=== PATIENT | female | born 1940 | race Caucasian/White ===

== ENCOUNTER → 2021-11-27 | Outpatient (CLI) | payer MEDICARE ==
[~2021-11-27] MED LIST: ASPI81CH; Cinnamon500 MG; Coq-10100 MG; DAILY MULTIPLE1 EACH; GINGER ROOT1 GM; Janumet 50-1,01 EACH; LISHYD1012; LOPRESSOR HCT PO; LOSHYD; METF500; OSCAL; PRAV20; VITAMIN B122500 MCG
[2021-11-30 12:53] LABS: Stool Occult Bld Immuno 1 Positive (NEGATIVE)
== END | disposition home or self-care (01) ==
LOC: LAB 15:00 → LAB SHORT 15:00
PROVIDERS: Internal Medicine
DX: D53.9 Nutritional anemia, unspecified (principal)
CPT/HCPCS: 82274

== ENCOUNTER 2022-03-19 17:37 | Inpatient (IN) | payer MEDICARE ==
[~2022-03-19] VITALS: Ht 162.6 cm; Wt 63.5 kg
[2022-03-19 18:30] LABS: BASOPHILS ABSOLUTE AUTO 0.03 K/mm3 (0.00-0.23); BASOPHILS PERCENT AUTO 0 % (0-2); EOSINOPHILS PERCENT AUTO 0 % (0-6); Hematocrit 31.9 % (33.0-51.0); Hemoglobin 10.2 g/dL (11.5-16.0); IMMATURE GRAN ABSOLUTE AUTO 0.09 K/mm3 (0.00-0.10); IMMATURE GRAN PERCENT AUTO 1 % (0-1); LYMPHOCYTES ABSOLUTE AUTO 0.76 K/mm3 (0.84-5.20); LYMPHOCYTES PERCENT AUTO 5 % (21-46); MONOCYTES ABSOLUTE AUTO 0.94 K/mm3 (0.16-1.47); MONOCYTES PERCENT AUTO 7 % (4-13); Mean Corpuscular HGB 27.5 pg (26.0-34.0); Mean Corpuscular Volume 86 fL (80-100); Mean Platelet Volume 10.3 fL (9.1-12.4); NEUTROPHILS ABSOLUTE AUTO 12.66 K/mm3 (1.96-9.15); NEUTROPHILS PERCENT AUTO 88 % (41-73); Platelet Count 389 K/mm3 (150-400); RDW Standard Deviation 46.8 fL (35.1-46.3); Red Blood Cell Count 3.71 M/mm3 (3.80-5.20); White Blood Cell Count 14.48 K/mm3 (4.00-11.30)
[2022-03-19 18:41] LABS: Source, Urine Straight Cath
[2022-03-19 18:48] LABS: Appearance, Urine Cloudy (Clear); Bilirubin, Urine Neg (Neg); Blood, Urine 3+ (Neg); Color, Urine Yellow (P-Yellow); Glucose Qualitative, Urine 4+ (Neg); Ketones, Urine 2+ (Neg); Leukocyte Esterase, Urine 3+ (Neg); Nitrite, Urine Pos (Neg); Protein, Urine 3+ (Neg); Urobilinogen, Urine NORM (Normal)
[2022-03-19 18:54] LABS: Base Excess Venous 1.5 mmol/L; Bicarbonate Venous 25.4 mmol/L (24.0-30.0); PCO2 Venous 42.5 mmHg (38-42)
[2022-03-19 18:54] LABS: White Blood Cells, Urine TNTC /hpf (0-5)
[2022-03-19 18:55] LABS: Beta-hydroxybutyrate 18.9 mg/dL (0.2-2.8)
[2022-03-19 18:56] LABS: Bacteria Many /hpf; Red Blood Cells, Urine 0-2 /hpf (0-2); Squamous Epithelial Cells Not Seen /hpf (Few)
[2022-03-19 19:13] LABS: Albumin, Blood 2.6 g/dL (3.4-5.0); Albumin/Globulin Ratio 0.5 (0.8-1.8); Bilirubin, Total 1.3 mg/dL (0.1-1.0); Bun/Creatinine Ratio 21.6 (12.0-20.0); Calcium, Blood 8.5 mg/dL (8.5-10.1); Creatinine, Blood 1.11 mg/dL (0.40-1.00); Globulin, Blood 5.6 g/dL (2.2-4.0); Potassium, Blood 3.2 mmol/L (3.5-5.5); Total Protein, Blood 8.2 g/dL (6.4-8.2)
[2022-03-19] MEDS ORDERED: FUROSEMIDE20 MG PO (21:35)
[2022-03-19] MEDS ORDERED: JANUMET 50-1,01 EACH PO (21:36)
[2022-03-19] MEDS ORDERED: PRAVASTATIN SOD20 MG PO (21:36)
[2022-03-19] MEDS ORDERED: POTA10T PO (21:36)
[2022-03-19] MEDS ORDERED: BASAGLAR K100 UNIT/3 SC (21:36)
[2022-03-19] MEDS ORDERED: XARELTO20 M1 PO (21:36)
[2022-03-19] MEDS ORDERED: METO50ER PO (21:36)
--- NOTE | 2022-03-20 03:31 | NUR ---
SHIFT SUMMARY NOC ADMIT FROM ED WITH SEPSIS/UTI. PT A/O X 4 ON BEDREST DUE TO GENERALIZED WEAKNESS FROM INFECTION. PT HAS LACTIC ACID THAT IS AT 2.3 DOWN FROM 2.5. PT HAS DM2 BUT DOES NOT MONITOR BLOOD GLUCOSE OR TAKE INSULIN AT HOME. PT STATES SHE WAS TIRED OR DOING IT. HER CBG IN ED WAS >400 AND 354 BEFORE GLARGINE ADMININSTRATION. PT IS ON TELE AFIB @ 100 BPM. PT IS CURRENTLY ON SEPSIS NS FLUIDS @ 125 MLS/HR. PT MG LEVEL WAS 1.0 AND WAS GIVEN IVPB MG REPLACEMENT. AWAITING AM LABS FOR REEVALUATION. PT HAS STAGE 1 PU ON COCCYX WITH MEPILEX IN PLACE. PT HAS YEAST INFECTION UNDER BOTH BREASTS AND UNDER PANNUS WITH NYSTATIN POWDER APPLIED. PT IS CURRENTLY RESTING IN BED WITH BED IN LOWEST POSITION, AND CALL LIGHT WITHIN REACH.
[2022-03-20 04:51] LABS: Hematocrit 28.7 % (33.0-51.0); Hemoglobin 9.3 g/dL (11.5-16.0); Mean Corpuscular HGB 27.7 pg (26.0-34.0); Mean Corpuscular HGB Conc 32.4 g/dL (31.5-36.5); Mean Corpuscular Volume 85 fL (80-100); Mean Platelet Volume 10.3 fL (9.1-12.4); Platelet Count 320 K/mm3 (150-400); RDW Coefficient Variation 14.8 % (11.7-14.2); RDW Standard Deviation 46.5 fL (35.1-46.3); Red Blood Cell Count 3.36 M/mm3 (3.80-5.20); White Blood Cell Count 11.08 K/mm3 (4.00-11.30)
[2022-03-20 05:14] LABS: Bun/Creatinine Ratio 22.5 (12.0-20.0); Calcium, Blood 7.9 mg/dL (8.5-10.1); Creatinine, Blood 0.89 mg/dL (0.40-1.00); Magnesium, Blood 1.6 mg/dL (1.6-2.4); Potassium, Blood 3.2 mmol/L (3.5-5.5)
[2022-03-20 11:40] LABS: Iron Serum 16 ug/dL (50-170); Magnesium, Blood 1.6 mg/dL (1.6-2.4); Total Iron Binding Capacity 207 ug/dL (250-450); Uric Acid, Blood 6.1 mg/dL (2.6-6.0)
[2022-03-20 11:41] LABS: Ferritin, Serum 208 ng/mL (8-252); Percent Saturation 7.7 % (15.0-50.0)
[2022-03-20 11:47] LABS: C-REACTIVE PROTEIN, EXT RANGE >19.000 mg/dL (0.000-0.300); Phosphorus, Blood 1.8 mg/dL (2.5-4.9)
--- NOTE | 2022-03-20 13:52 | NUR ---
TACHYCARDIA: RECEIVED A CALL FROM GUICHO IN TELEMETRY THAT PT WAS HAVING 140'S-160'S BPM. CALLED DR. DOHERTY WHO STATED HE WILL PUT IN ORDER FOR IV METOPROLOL. PT ASYMPTOMATIC. WILL CONTINUE TO MONITOR.
--- NOTE | 2022-03-20 18:13 | NUR ---
SHIFT SUMMARY: PT ALERT AND ORIENTED X4. PT DOES NOT C/O PAIN OR COMFORT WHILE LYING DOWN BUT IS IN A GREAT DEAL OF PAIN W/ANY MOVEMENT MORESO ON THE LEFT SIDE. PT HAS LARGE RED AREA UNDER PANNUS AND SOME YEAST UNDER BREASTS. BOTH CLEANED AND APPLIED DESENEX TWICE THIS SHIFT. PT WAS ASSESSED BY PHYSICAL THERAPY TODAY BUT WAS IN TOO MUCH PAIN TO TOLERATE. RECEIVED SEVERAL CALLS FROM TELE THAT PT WAS RUNNING IN THE 150-[address] POLANCO WHO PUT IN AN ORDER TO PUSH IV METOPROLOL. IV FORM APPEARED TO HELP FOR ABOUT HALF AN HR. RECEIVED ANOTHER CALL AFTER THE HOUR THAT STATED PT WAS BACK IN THE 150'S. WAS CALLED AND GAVE A SECOND IV PUSH OF METOPROLOL PLUS HER EVENING DOSE OF PO METOPROLOL EARLY. PT CURRENTLY RUNNING 110-120 BPM. BOTH R/LAC IV FLUSH W/O ISSUES WITH THE LEFT RUNNING LR@100. PUREWICK IN PLACE. ATTENDS CHANGED AND PT REPOSITIONED. CALL LIGHT IN REACH. BED IN LOWEST POSITION. WILL CONTINUE TO MONITOR.
--- NOTE | 2022-03-21 04:21 | NUR ---
SHIFT SUMMARY AOX4. ABLE TO RESPOND & FOLLOW DIRECTIONS APPROPRIATELY. VSS. TELE AFIB HR 90-115, HR DID TACH UP TO 156 FOR ROUGHLY 30SEC WHILE REGISTERED PHYSICAL THERAPIST IN PTS RM FOR CARE BUT AFTER AWHILE HR TRENDED BACK DOWN & HAS BEEN WNL SINCE. DENIES PAIN, HOWEVER FLINCHES OR GRIMACES WHEN WRISTS ARE TOUCHED, DENIES NEED FOR MEDS. DENIES N/V OR DYSPNEA. HAS COARSE CRACKLES IN BILAT LOBES c +2-3 PITTING PEDAL EDMA, ELEVATED BLE ON PILLOWS & EDEMA HAS DECREASED. 2 ASSIST c REPOSITIONING Q2H, PUREWICK IN PLACE. HS CBG @264. CALL LIGHT IN REACH & PT ABLE TO MAKE NEEDS KNOWN. WILL MONITOR.
[2022-03-21 05:51] LABS: BASOPHILS ABSOLUTE AUTO 0.01 K/mm3 (0.00-0.23); BASOPHILS PERCENT AUTO 0 % (0-2); EOSINOPHILS PERCENT AUTO 0 % (0-6); Hematocrit 25.1 % (33.0-51.0); Hemoglobin 8.1 g/dL (11.5-16.0); IMMATURE GRAN ABSOLUTE AUTO 0.06 K/mm3 (0.00-0.10); IMMATURE GRAN PERCENT AUTO 1 % (0-1); LYMPHOCYTES ABSOLUTE AUTO 0.79 K/mm3 (0.84-5.20); LYMPHOCYTES PERCENT AUTO 9 % (21-46); MONOCYTES PERCENT AUTO 6 % (4-13); Mean Corpuscular HGB 27.8 pg (26.0-34.0); Mean Corpuscular HGB Conc 32.3 g/dL (31.5-36.5); Mean Corpuscular Volume 86 fL (80-100); Mean Platelet Volume 10.6 fL (9.1-12.4); NEUTROPHILS ABSOLUTE AUTO 7.77 K/mm3 (1.96-9.15); NEUTROPHILS PERCENT AUTO 85 % (41-73); Platelet Count 280 K/mm3 (150-400); RDW Coefficient Variation 14.7 % (11.7-14.2); Red Blood Cell Count 2.91 M/mm3 (3.80-5.20); White Blood Cell Count 9.13 K/mm3 (4.00-11.30)
[2022-03-21 06:21] LABS: Magnesium, Blood 1.4 mg/dL (1.6-2.4)
[2022-03-21 06:22] LABS: Albumin, Blood 1.7 g/dL (3.4-5.0); Albumin/Globulin Ratio 0.3 (0.8-1.8); Bilirubin, Total 0.7 mg/dL (0.1-1.0); Bun/Creatinine Ratio 22.8 (12.0-20.0); Calcium, Blood 7.7 mg/dL (8.5-10.1); Creatinine, Blood 0.79 mg/dL (0.40-1.00); Globulin, Blood 4.9 g/dL (2.2-4.0); Phosphorus, Blood 2.3 mg/dL (2.5-4.9); Potassium, Blood 3.5 mmol/L (3.5-5.5); Total Protein, Blood 6.6 g/dL (6.4-8.2)
--- NOTE | 2022-03-21 17:15 | NUR ---
SHIFT SUMMARY: PT A&0 X3-4. PT HAS HAD SEVERAL SCANS DONE TODAY WHICH INCLUDED AN ABDOMINAL ULTRASOUND, ECG, AND CHEST CT. PT HAS BEEN PRETTY UPSET THIS SHIFT EACH TIME I HAVE GONE INTO HER ROOM. SHE STATES THAT SHE DOES NOT KNOW WHAT IS WRONG WITH HER AND THAT EVERYTHING IS GOING WRONG THAT CAN. I HAVE REASSURED HER SEVERAL TIMES THAT SHE IS WELL TAKEN CARE OF HERE. PT HAD 2-3 PITTING EDEMA IN BLE THIS AM. APPLIED SCD'S AND ELEVATED EXTREMETIES. EDEMA APPEARS TO HAVE GONE DOWN. PT HAS HAD MORE MOVEMENT THIS SHIFT IN HER LIMBS W/O PAIN. PT IS STILL VERY PAINFUL WHEN CHANGING OR REPOSITIONING. PT DECLINES PAIN MEDICATION. PT FLOATED OFF BOTTOM. POWDER APPLIED TO PANNUS AND UNDER BREASTS. PUREWICK IN PLACE. LR RUNNING @50. CALL LIGHT IN REACH. BED IN LOWEST POSITION. WILL CONTINUE TO MONITOR.
[2022-03-22 04:59] LABS: BASOPHILS ABSOLUTE AUTO 0.01 K/mm3 (0.00-0.23); BASOPHILS PERCENT AUTO 0 % (0-2); EOSINOPHILS ABSOLUTE AUTO 0.01 K/mm3 (0.00-0.68); EOSINOPHILS PERCENT AUTO 0 % (0-6); Hematocrit 26.6 % (33.0-51.0); Hemoglobin 8.6 g/dL (11.5-16.0); IMMATURE GRAN PERCENT AUTO 1 % (0-1); LYMPHOCYTES ABSOLUTE AUTO 1.25 K/mm3 (0.84-5.20); LYMPHOCYTES PERCENT AUTO 14 % (21-46); MONOCYTES ABSOLUTE AUTO 0.54 K/mm3 (0.16-1.47); MONOCYTES PERCENT AUTO 6 % (4-13); Mean Corpuscular HGB 27.9 pg (26.0-34.0); Mean Corpuscular HGB Conc 32.3 g/dL (31.5-36.5); Mean Corpuscular Volume 86 fL (80-100); Mean Platelet Volume 10.7 fL (9.1-12.4); NEUTROPHILS ABSOLUTE AUTO 7.04 K/mm3 (1.96-9.15); NEUTROPHILS PERCENT AUTO 79 % (41-73); Platelet Count 310 K/mm3 (150-400); RDW Coefficient Variation 14.5 % (11.7-14.2); RDW Standard Deviation 45.5 fL (35.1-46.3); Red Blood Cell Count 3.08 M/mm3 (3.80-5.20); White Blood Cell Count 8.95 K/mm3 (4.00-11.30)
[2022-03-22 05:38] LABS: Albumin, Blood 1.8 g/dL (3.4-5.0); Albumin/Globulin Ratio 0.4 (0.8-1.8); Bilirubin, Total 0.8 mg/dL (0.1-1.0); Bun/Creatinine Ratio 31.3 (12.0-20.0); Calcium, Blood 8.5 mg/dL (8.5-10.1); Creatinine, Blood 0.8 mg/dL (0.40-1.00); Globulin, Blood 4.8 g/dL (2.2-4.0); Potassium, Blood 3.2 mmol/L (3.5-5.5); Total Protein, Blood 6.6 g/dL (6.4-8.2)
--- NOTE | 2022-03-22 05:38 | NUR ---
SUMMARY: PT A/OX3-4 AND IS MILDLY FORGETFUL AT TIMES BUT REORIENTS QUICKLY W/REMINDERS. SHE CONT'S DECONDITIONED ON BEDREST W/TURN SCHEDULE MAINTAINED. BUTTOCKS WAS PINK W/PROTECTIVE MEPILEX APPLIED FOR SBD PREVENTION. PUREWIC IS PATENT AND WAS REPLACED THIS SHIFT W/ORANGE URINE OUTPUT OBSERVED TO SUCTION CANISTER. 2+ EDEMA NOTED TO BLE'S AND WORSE IN FEET. SCD'S INTACT AND LEGS ELEVATED ON PILLOWS IN BED. POWDER APPLIED TO PANNUS AND UNDER BREASTS PER EMAR, SKIN SEEMS TO BE IMPROVING. LR INFUSES AT 50 ML/HR AND IV ABX RECIEVED. SHE'S DENIED PAIN AND ALL OTHER COMPLAINTS THIS SHIFT. VSS/AFEBRILE AND NO ACUTE CHANGES. WCTM AND REPORT TO DAY RN.
--- NOTE | 2022-03-22 19:47 | NUR ---
SHIFT SUMMARY PT A&O X 4 THOUGH CAN BE FORGETFUL AT TIMES. REORIENTS WELL. DTR AT BEDSIDE MOST OF THE MORNING. HANDYPERSON S/W PT REGARDING POSSIBLE SNF/REHAB PLACEMENT UPON DC WHEN CLINICALLY ABLE. PT WANTS TO S/W HER DTR 1ST. PROVIDED ORDERS FOR BOWEL CARE, PT STATES SHE HAS NOT HAD A BM FOR 4 DAYS. MOM GIVEN PER EMAR. PT REPOSITIONED FREQ. PT PARTICIPATED WITH PHYS THERAPY. IV INTACT & PATENT, FLUIDS INFUSING. PUREWICK IN PLACE, DRAINING DARK YELLOW TO ALMOST ORANGE COLORED URINE. IS PLEASANT & COOPERATIVE WITH ALL CARE.
--- NOTE | 2022-03-23 04:23 | NUR ---
SHIFT SUMMARY PT A&O X 4, BUT CAN BE FORGETFUL AT TIMES. PT STATES SHE HAS NOT HAD BM FOR 4 DAYS AND REPORTING NURSE PROVIDED BOWEL CARE ON LAST SHIFT. PT ASKED FOR BED BERRY, BUT WAS UNABLE TO PRODUCE BM. SHE IS PLEASANT AND COOPERATIVE WITH CARE. IVF INFUSING. PUREWICK IN PLACE DRAINING ORANGE COLORED URINE. NO ACUTE CHANGES SO FAR THIS SHIFT. WILL CONTINUE TO MONITOR THROUGHOUT SHIFT.
[2022-03-23 05:04] LABS: BASOPHILS ABSOLUTE AUTO 0.01 K/mm3 (0.00-0.23); BASOPHILS PERCENT AUTO 0 % (0-2); EOSINOPHILS ABSOLUTE AUTO 0.01 K/mm3 (0.00-0.68); EOSINOPHILS PERCENT AUTO 0 % (0-6); Hematocrit 26.9 % (33.0-51.0); Hemoglobin 8.8 g/dL (11.5-16.0); IMMATURE GRAN ABSOLUTE AUTO 0.11 K/mm3 (0.00-0.10); IMMATURE GRAN PERCENT AUTO 1 % (0-1); LYMPHOCYTES ABSOLUTE AUTO 1.26 K/mm3 (0.84-5.20); LYMPHOCYTES PERCENT AUTO 15 % (21-46); MONOCYTES ABSOLUTE AUTO 0.63 K/mm3 (0.16-1.47); MONOCYTES PERCENT AUTO 7 % (4-13); Mean Corpuscular HGB Conc 32.7 g/dL (31.5-36.5); Mean Corpuscular Volume 86 fL (80-100); Mean Platelet Volume 10.3 fL (9.1-12.4); NEUTROPHILS ABSOLUTE AUTO 6.53 K/mm3 (1.96-9.15); NEUTROPHILS PERCENT AUTO 76 % (41-73); NRBC ABSOLUTE 0.04 K/mm3 (0.00-0.02); NRBC Auto 0.5 /100 WBC (0.0-0.2); Platelet Count 346 K/mm3 (150-400); RDW Coefficient Variation 14.4 % (11.7-14.2); RDW Standard Deviation 45.2 fL (35.1-46.3); Red Blood Cell Count 3.14 M/mm3 (3.80-5.20); White Blood Cell Count 8.55 K/mm3 (4.00-11.30)
[2022-03-23 05:31] LABS: Albumin, Blood 1.9 g/dL (3.4-5.0); Albumin/Globulin Ratio 0.4 (0.8-1.8); Bilirubin, Total 0.3 mg/dL (0.1-1.0); Bun/Creatinine Ratio 24.7 (12.0-20.0); Calcium, Blood 8.5 mg/dL (8.5-10.1); Creatinine, Blood 0.89 mg/dL (0.40-1.00); Globulin, Blood 4.4 g/dL (2.2-4.0); Potassium, Blood 3.7 mmol/L (3.5-5.5); Total Protein, Blood 6.3 g/dL (6.4-8.2)
--- NOTE | 2022-03-23 17:07 | NUR ---
PT AO AND COOPERATIVE OF CARE.PT HAS BEEN RESTING IN BED MOST TO THE SHIFT. PT DENIED PAIN. PT WORKED WELL WITH PHYSICAL THERAPY AND WAS ABLE TO STAND AT BEDSIDE. PT REPORTED FELLING CONSTIPATED AND DR SÁNCHEZ WAS NOTIFIED AND MED ADDED TO EMAR. NO DISTRESS NOTED WILL CONTINUE TO MONITOR.
[2022-03-24 05:18] LABS: BASOPHILS ABSOLUTE AUTO 0.01 K/mm3 (0.00-0.23); BASOPHILS PERCENT AUTO 0 % (0-2); EOSINOPHILS ABSOLUTE AUTO 0.01 K/mm3 (0.00-0.68); EOSINOPHILS PERCENT AUTO 0 % (0-6); Hematocrit 27.7 % (33.0-51.0); IMMATURE GRAN ABSOLUTE AUTO 0.12 K/mm3 (0.00-0.10); IMMATURE GRAN PERCENT AUTO 1 % (0-1); LYMPHOCYTES ABSOLUTE AUTO 1.51 K/mm3 (0.84-5.20); LYMPHOCYTES PERCENT AUTO 16 % (21-46); MONOCYTES PERCENT AUTO 7 % (4-13); Mean Corpuscular HGB 27.8 pg (26.0-34.0); Mean Corpuscular HGB Conc 32.5 g/dL (31.5-36.5); Mean Corpuscular Volume 86 fL (80-100); NEUTROPHILS ABSOLUTE AUTO 7.35 K/mm3 (1.96-9.15); NEUTROPHILS PERCENT AUTO 76 % (41-73); NRBC ABSOLUTE 0.05 K/mm3 (0.00-0.02); NRBC Auto 0.5 /100 WBC (0.0-0.2); Platelet Count 361 K/mm3 (150-400); RDW Coefficient Variation 14.6 % (11.7-14.2); Red Blood Cell Count 3.24 M/mm3 (3.80-5.20)
[2022-03-24 05:52] LABS: Albumin/Globulin Ratio 0.5 (0.8-1.8); Bilirubin, Total 0.3 mg/dL (0.1-1.0); Calcium, Blood 8.8 mg/dL (8.5-10.1); Creatinine, Blood 0.85 mg/dL (0.40-1.00); Globulin, Blood 4.3 g/dL (2.2-4.0); Potassium, Blood 3.6 mmol/L (3.5-5.5); Total Protein, Blood 6.3 g/dL (6.4-8.2)
--- NOTE | 2022-03-24 06:03 | NUR ---
SHIFT SUMMARY 81 YR F ADMITTED ON 03/19/22 FOR UROSEPSIS. FULL CODE. NO ACUTE CHANGES THIS SHIFT. PT IS A&O X 4 AND IS VERY PLEASANT AND COOPERATIVE WITH CARE. SHE HAD A MEDIUM SIZED BM THIS SHIFT AND IT WAS HER SECOND ONE FOR THE DAY. SHE STATES SHE FELT MUCH BETTER AFTERWARD. PROPHYLACTIC MEPILEX ON COCCYX WAS CHANGED DUE TO BEING SOILED, WELL HER PUREWICK. PUREWICK WAS ALSO CHANGED AGAIN THIS A.M. PT HAD NO C/O PAIN OR DISCOMFORT THIS SHIFT AND APPEARED TO REST COMFORTABLY FOR MOST OF THE NIGHT.
[2022-03-24 12:15] LABS: SARS-Cov-2 (COVID-19) PCR, MMC NEGATIVE (NEGATIVE)
[2022-03-24] MEDS ORDERED: ALLO100 (13:57)
[2022-03-24] MEDS ORDERED: ACET325 PO (13:57)
[2022-03-24] MEDS ORDERED: DOCU100 PO (14:12)
[2022-03-24] MEDS ORDERED: FOLI1 PO (14:13)
[2022-03-24] MEDS ORDERED: HUMALOG KW100 UNIT/1 SC (14:15)
[2022-03-24] MEDS ORDERED: MICONAZOLE NITR85 GM TOP (14:16)
[2022-03-24] MEDS ORDERED: PRED10 PO (14:17)
[2022-03-24] MEDS ORDERED: PRED20 PO (14:18)
[2022-03-24] MEDS ORDERED: SENN187 PO (14:20)
[2022-03-24] MEDS ORDERED: Prednisone10 MG PO (14:20)
[2022-03-24] MEDS ORDERED: CEFD300 PO (14:21)
[2022-03-24] MEDS ORDERED: TRAZ50 PO (14:21)
--- NOTE | 2022-03-24 14:37 | NUR ---
PT TRANSFERED TO [facility]. REPORT WAS CALLED PRIOR TO DISCHARGE. ALL PERSONAL BELINGINGS WERE COLLECTED AND SENT WITH PT. PACKET WAS SENT WITH TIMBER PACKER. NO DISTRESS NOTED. PT HAS BEEN COOPERATIVE OF CARE ALL DAY AND WORKED WELL WITH PHYSICAL THERAPY.
== END 2022-03-24 14:10 | DRG 872 ==
LOC: ER 17:37 → MEDS 21:40
PROVIDERS: Emergency Medicine; Family Medicine; Hospitalist; ADMIT Internal Medicine
PROC: 3E03329 Introduction of Other Anti-infective into Peripheral Vein, Percutaneous Approach (ICD-10-PCS; principal; 2022-03-19)
PROC: 4A133R1 Monitoring of Arterial Saturation, Peripheral, Percutaneous Approach (ICD-10-PCS; 2022-03-19)
DX: A41.50 Gram-negative sepsis, unspecified (principal); N39.0 Urinary tract infection, site not specified; I50.32 Chronic diastolic (congestive) heart failure; E87.1 Hypo-osmolality and hyponatremia; I48.21 Permanent atrial fibrillation; E87.20 Acidosis, unspecified; N17.9 Acute kidney failure, unspecified; R65.20 Severe sepsis without septic shock; E11.65 Type 2 diabetes mellitus with hyperglycemia; R74.8 Abnormal levels of other serum enzymes; E86.0 Dehydration; I11.0 Hypertensive heart disease with heart failure; E87.6 Hypokalemia; D50.9 Iron deficiency anemia, unspecified; E83.42 Hypomagnesemia; R79.89 Other specified abnormal findings of blood chemistry; M25.531 Pain in right wrist; M25.532 Pain in left wrist; R91.8 Other nonspecific abnormal finding of lung field; M10.9 Gout, unspecified; I27.20 Pulmonary hypertension, unspecified; T38.3X6A Underdosing of insulin and oral hypoglycemic [antidiabetic] drugs, initial encounter; I08.3 Combined rheumatic disorders of mitral, aortic and tricuspid valves; E78.5 Hyperlipidemia, unspecified; Z60.2 Problems related to living alone; Z20.822 Contact with and (suspected) exposure to COVID-19; Z90.49 Acquired absence of other specified parts of digestive tract; Z90.710 Acquired absence of both cervix and uterus; Z88.2 Allergy status to sulfonamides; Z88.8 Allergy status to other drugs, medicaments and biological substances; Z79.82 Long term (current) use of aspirin; Z79.899 Other long term (current) drug therapy; Z91.14 Patient's other noncompliance with medication regimen
CPT/HCPCS: 36415; 71045; 71250; 73100; 73110; 76700; 80048; 80053; 81001; 82010; 82607; 82728; 82746; 82803; 82947; 83036; 83540; 83550; 83605; 83735; 83880; 84100; 84145; 84550; 85025; 85027; 85651; 86140; 87040; 87077; 87086; 87186; 93005; 93010; 93306; 96361; 96365; 96366; 96367; 97110; 97116; 97162; 97530; 99285-25; A9270; J0696; J1815; J2916; J3475; J7030; J7050; J7060; J7120; J7512; P9612; U0004

== ENCOUNTER 2022-04-21 10:20 | Emergency (ER) | payer MEDICARE ==
[~2022-04-21] VITALS: Ht 167.6 cm; Wt 74.8 kg
[~2022-04-21 10:20] MED LIST changes: +ACET325 PO; +ALLO100; +BASAGLAR K100 UNIT/3 SC; +CEFD300 PO; +DOCU100 PO; +FOLI1 PO; +FUROSEMIDE20 MG PO; +HUMALOG KW100 UNIT/1 SC; +JANUMET 50-1,01 EACH PO; +METO50ER PO; +MICONAZOLE NITR85 GM TOP; +POTA10T PO; +PRAVASTATIN SOD20 MG PO; +PRED10 PO; +PRED20 PO; +Prednisone10 MG PO; +SENN187 PO; +TRAZ50 PO; +XARELTO20 M1 PO
[2022-04-21 11:06] LABS: BASOPHILS ABSOLUTE AUTO 0.04 K/mm3 (0.00-0.23); BASOPHILS PERCENT AUTO 1 % (0-2); EOSINOPHILS ABSOLUTE AUTO 0.07 K/mm3 (0.00-0.68); EOSINOPHILS PERCENT AUTO 1 % (0-6); Hematocrit 35.9 % (33.0-51.0); IMMATURE GRAN ABSOLUTE AUTO 0.12 K/mm3 (0.00-0.10); IMMATURE GRAN PERCENT AUTO 1 % (0-1); LYMPHOCYTES ABSOLUTE AUTO 1.72 K/mm3 (0.84-5.20); LYMPHOCYTES PERCENT AUTO 20 % (21-46); MONOCYTES ABSOLUTE AUTO 0.65 K/mm3 (0.16-1.47); MONOCYTES PERCENT AUTO 8 % (4-13); Mean Corpuscular HGB 27.8 pg (26.0-34.0); Mean Corpuscular HGB Conc 30.6 g/dL (31.5-36.5); Mean Corpuscular Volume 91 fL (80-100); Mean Platelet Volume 10.1 fL (9.1-12.4); NEUTROPHILS ABSOLUTE AUTO 5.96 K/mm3 (1.96-9.15); NEUTROPHILS PERCENT AUTO 70 % (41-73); Platelet Count 275 K/mm3 (150-400); RDW Coefficient Variation 17.6 % (11.7-14.2); RDW Standard Deviation 58.9 fL (35.1-46.3); Red Blood Cell Count 3.95 M/mm3 (3.80-5.20); White Blood Cell Count 8.56 K/mm3 (4.00-11.30)
[2022-04-21 11:26] LABS: Albumin, Blood 2.9 g/dL (3.4-5.0); Albumin/Globulin Ratio 0.6 (0.8-1.8); Bilirubin, Total 0.6 mg/dL (0.1-1.0); Bun/Creatinine Ratio 23.8 (12.0-20.0); Calcium, Blood 8.6 mg/dL (8.5-10.1); Creatinine, Blood 0.92 mg/dL (0.40-1.00); Globulin, Blood 4.6 g/dL (2.2-4.0); Magnesium, Blood 1.3 mg/dL (1.6-2.4); Potassium, Blood 3.4 mmol/L (3.5-5.5); Total Protein, Blood 7.5 g/dL (6.4-8.2)
[2022-04-21 11:31] LABS: Source, Urine Straight Cath
[2022-04-21 11:34] LABS: Appearance, Urine Clear (Clear); Bilirubin, Urine Neg (Neg); Blood, Urine 1+ (Neg); Color, Urine Yellow (P-Yellow); Glucose Qualitative, Urine Neg (Neg); Ketones, Urine Neg (Neg); Leukocyte Esterase, Urine Neg (Neg); Nitrite, Urine Neg (Neg); Protein, Urine 1+ (Neg); Specific Gravity, Urine 1.015 (1.003-1.022); Urobilinogen, Urine NORM (Normal)
[2022-04-21 12:11] LABS: Amorphous Light (0-Heavy); Bacteria Not Seen /hpf; Red Blood Cells, Urine 0-2 /hpf (0-2); Squamous Epithelial Cells Rare /hpf (Few); White Blood Cells, Urine Not Seen /hpf (0-5)
== END 2022-04-21 15:55 | disposition home or self-care (01) ==
LOC: ER 10:20
PROVIDERS: Emergency Medicine
DX: R53.1 Weakness (principal); W18.30XA Fall on same level, unspecified, initial encounter; E11.9 Type 2 diabetes mellitus without complications; I10 Essential (primary) hypertension; E78.5 Hyperlipidemia, unspecified; I48.91 Unspecified atrial fibrillation; Z88.2 Allergy status to sulfonamides; Z88.8 Allergy status to other drugs, medicaments and biological substances
CPT/HCPCS: 36415; 70450; 71046; 72125; 80053; 81001; 83735; 85025; 97116; 97162; 99284-25

== ENCOUNTER 2022-05-10 17:54 | Emergency (ER) | payer MEDICARE ==
[~2022-05-10] VITALS: Ht 160 cm; Wt 68.0 kg
[~2022-05-10 17:54] MED LIST changes: -K-Dur10 MEQ; -PRED5 PO
[2022-05-10 20:55] LABS: Free Thyroxine 1.54 ng/dL (0.70-1.60)
[2022-05-10 20:57] LABS: Thyroid Stimulating Hormone 1.13 uIU/mL (0.360-4.800); Triiodothyronine, Free 1.58 pg/mL (2.18-3.98)
[2022-05-10] MEDS ORDERED: PRED5 PO (21:55)
[2022-05-10] MEDS ORDERED: FUROSEMIDE20 MG PO (21:57)
[2022-05-10] MEDS ORDERED: K-Dur10 MEQ (21:57)
== END 2022-05-10 22:44 | disposition home or self-care (01) ==
LOC: ER 17:54
PROVIDERS: Emergency Medicine
DX: E83.42 Hypomagnesemia (principal); E11.9 Type 2 diabetes mellitus without complications; I10 Essential (primary) hypertension; E78.5 Hyperlipidemia, unspecified; Z88.2 Allergy status to sulfonamides; Z88.8 Allergy status to other drugs, medicaments and biological substances; Z79.4 Long term (current) use of insulin; Z79.899 Other long term (current) drug therapy; Z79.52 Long term (current) use of systemic steroids
CPT/HCPCS: 84439; 84443; 84481; 84484; 93005; 93010; A9270; J3475

== ENCOUNTER → 2022-05-10 | Outpatient (CLI) | payer MEDICARE ==
[~2022-05-10] MED LIST changes: +K-Dur10 MEQ; +PRED5 PO
[2022-05-10 16:01] LABS: BASOPHILS ABSOLUTE AUTO 0.03 K/mm3 (0.00-0.23); BASOPHILS PERCENT AUTO 0 % (0-2); EOSINOPHILS PERCENT AUTO 0 % (0-6); Hematocrit 38.5 % (33.0-51.0); Hemoglobin 12.4 g/dL (11.5-16.0); IMMATURE GRAN ABSOLUTE AUTO 0.12 K/mm3 (0.00-0.10); IMMATURE GRAN PERCENT AUTO 1 % (0-1); LYMPHOCYTES ABSOLUTE AUTO 0.85 K/mm3 (0.84-5.20); LYMPHOCYTES PERCENT AUTO 6 % (21-46); MONOCYTES ABSOLUTE AUTO 0.46 K/mm3 (0.16-1.47); MONOCYTES PERCENT AUTO 3 % (4-13); Mean Corpuscular HGB 28.4 pg (26.0-34.0); Mean Corpuscular HGB Conc 32.2 g/dL (31.5-36.5); Mean Corpuscular Volume 88 fL (80-100); Mean Platelet Volume 10.9 fL (9.1-12.4); NEUTROPHILS ABSOLUTE AUTO 11.88 K/mm3 (1.96-9.15); NEUTROPHILS PERCENT AUTO 89 % (41-73); Platelet Count 379 K/mm3 (150-400); RDW Coefficient Variation 16.5 % (11.7-14.2); RDW Standard Deviation 53.9 fL (35.1-46.3); Red Blood Cell Count 4.36 M/mm3 (3.80-5.20); White Blood Cell Count 13.34 K/mm3 (4.00-11.30)
[2022-05-10 16:09] LABS: Albumin, Blood 2.7 g/dL (3.4-5.0); Albumin/Globulin Ratio 0.5 (0.8-1.8); Bilirubin, Total 0.6 mg/dL (0.1-1.0); Bun/Creatinine Ratio 19.4 (12.0-20.0); Calcium, Blood 7.2 mg/dL (8.5-10.1); Creatinine, Blood 1.24 mg/dL (0.40-1.00); Globulin, Blood 5.4 g/dL (2.2-4.0); Potassium, Blood 3.7 mmol/L (3.5-5.5); Total Protein, Blood 8.1 g/dL (6.4-8.2)
[2022-05-10 17:06] LABS: Magnesium, Blood 0.5 mg/dL (1.6-2.4)
== END | disposition home or self-care (01) ==
LOC: LAB SHORT 15:52 → LAB 15:52
PROVIDERS: Emergency Medicine
DX: M62.81 Muscle weakness (generalized) (principal)
CPT/HCPCS: 80053; 83735; 85025

== ENCOUNTER 2022-05-28 12:55 | Day surgery (SDC) | payer MEDICARE ==
[~2022-05-28 12:55] MED LIST changes: -ALLO100; +ALLO100 PO; +K-Dur10 MEQ; -PRED20 PO; +PRED5 PO
[2022-05-28] MEDS ORDERED: JANUMET 50-1,01 EACH PO (16:39)
== END 2022-05-28 16:15 | disposition home or self-care (01) ==
LOC: ATC 12:55
DX: E83.42 Hypomagnesemia (principal); E11.9 Type 2 diabetes mellitus without complications; F01.50 Vascular dementia, unspecified severity, without behavioral disturbance, psychotic disturbance, mood disturbance, and anxiety; M35.3 Polymyalgia rheumatica; E46 Unspecified protein-calorie malnutrition; E79.0 Hyperuricemia without signs of inflammatory arthritis and tophaceous disease; I48.0 Paroxysmal atrial fibrillation; I10 Essential (primary) hypertension; E78.5 Hyperlipidemia, unspecified; Z79.01 Long term (current) use of anticoagulants
CPT/HCPCS: 96365; 96366; C1751; J3475; J3480; J7050

== ENCOUNTER 2022-06-02 02:49 | Day surgery (SDC) | payer MEDICARE ==
[2022-06-02 09:17] VITALS: BP 111/78
== END 2022-06-02 11:30 | disposition home or self-care (01) ==
LOC: ATC 02:49
DX: E83.42 Hypomagnesemia (principal); E11.9 Type 2 diabetes mellitus without complications; E78.5 Hyperlipidemia, unspecified; I48.0 Paroxysmal atrial fibrillation; I10 Essential (primary) hypertension
CPT/HCPCS: 96365; 96366; J3475

== ENCOUNTER → 2022-11-02 | Outpatient (CLI) | payer MEDICARE ==
[~2022-11-02] MED LIST changes: +CEFP200 PO; +GUAI600T33 PO
== END | disposition home or self-care (01) ==
LOC: LAB SHORT 19:17 → LAB 19:17
DX: N39.0 Urinary tract infection, site not specified (principal)
CPT/HCPCS: 87077; 87086; 87186

== ENCOUNTER 2022-11-07 11:14 | Emergency (ER) | payer MEDICARE ==
[~2022-11-07] VITALS: Ht 160 cm; Wt 70.3 kg
[~2022-11-07 11:14] MED LIST changes: -CEFP200 PO; -GUAI600T33 PO
[2022-11-07 12:51] LABS: BASOPHILS ABSOLUTE AUTO 0.04 K/mm3 (0.00-0.23); BASOPHILS PERCENT AUTO 1 % (0-2); EOSINOPHILS ABSOLUTE AUTO 0.11 K/mm3 (0.00-0.68); EOSINOPHILS PERCENT AUTO 2 % (0-6); Hemoglobin 13.9 g/dL (11.5-16.0); IMMATURE GRAN ABSOLUTE AUTO 0.05 K/mm3 (0.00-0.10); IMMATURE GRAN PERCENT AUTO 1 % (0-1); LYMPHOCYTES ABSOLUTE AUTO 0.93 K/mm3 (0.84-5.20); LYMPHOCYTES PERCENT AUTO 15 % (21-46); MONOCYTES ABSOLUTE AUTO 0.47 K/mm3 (0.16-1.47); MONOCYTES PERCENT AUTO 7 % (4-13); Mean Corpuscular HGB 30.4 pg (26.0-34.0); Mean Corpuscular HGB Conc 32.3 g/dL (31.5-36.5); Mean Corpuscular Volume 94 fL (80-100); Mean Platelet Volume 10.9 fL (9.1-12.4); NEUTROPHILS ABSOLUTE AUTO 4.75 K/mm3 (1.96-9.15); NEUTROPHILS PERCENT AUTO 75 % (41-73); Platelet Count 219 K/mm3 (150-400); RDW Coefficient Variation 14.1 % (11.7-14.2); RDW Standard Deviation 49.3 fL (35.1-46.3); Red Blood Cell Count 4.57 M/mm3 (3.80-5.20); White Blood Cell Count 6.35 K/mm3 (4.00-11.30)
[2022-11-07 13:11] LABS: Albumin, Blood 3.1 g/dL (3.4-5.0); Albumin/Globulin Ratio 0.6 (0.8-1.8); Bilirubin, Total 0.6 mg/dL (0.1-1.0); Bun/Creatinine Ratio 17.6 (12.0-20.0); Calcium, Blood 9.3 mg/dL (8.5-10.1); Creatinine, Blood 1.08 mg/dL (0.40-1.00); Potassium, Blood 3.6 mmol/L (3.5-5.5); Total Protein, Blood 8.1 g/dL (6.4-8.2)
[2022-11-07] MEDS ORDERED: GUAI600T33 PO (13:28)
[2022-11-07] MEDS ORDERED: CEFP200 PO (13:28)
[2022-11-07 13:30] VITALS: BP 121/87
== END 2022-11-07 14:06 | disposition home or self-care (01) ==
LOC: ER 11:14
PROVIDERS: Student in an Organized Health Care Education/Training Program
DX: U07.1 COVID-19 (principal); J12.82 Pneumonia due to coronavirus disease 2019; N30.80 Other cystitis without hematuria; B96.1 Klebsiella pneumoniae [K. pneumoniae] as the cause of diseases classified elsewhere; E86.0 Dehydration; E11.9 Type 2 diabetes mellitus without complications; I10 Essential (primary) hypertension; E78.5 Hyperlipidemia, unspecified; I48.91 Unspecified atrial fibrillation; Z88.0 Allergy status to penicillin; Z79.899 Other long term (current) drug therapy
CPT/HCPCS: 71045; 80053; 85025; 93005; 93010; 96360; 99284-25; J7030